=== PATIENT | female | born 1990 ===

== ENCOUNTER 2018-07-22 03:00 | Emergency (ER) | payer OTHER ==
[2018-07-22 03:19] VITALS: BMI 20.1
[2018-07-22] MEDS ORDERED: Sodium Chloride 0.9% 1,000 ML IV STA ×2 (03:51→07:14)
--- NOTE | 2018-07-22 03:55 | ED PDOC ---
HPI: Hypertension/Hypotension Chief Complaint (Provider): palpitations History Per: Patient History/Exam Limitations: no limitations Onset/Duration Of Symptoms: Days (3), Waxing/Waning Current Symptoms Are (Timing): Still Present Associated Symptoms: Dyspnea, Dizziness Additional Complaint(s): 27 y/o female presents for evaluation of intermittent palpitations x 3 days. Associated shortness of breath and sometimes notes dizziness with symptoms. Denies fever, headache, nausea/vomiting, chest pain, abdominal pain, leg pain/swelling, recent travel. Patient is 3 months , was also receiving iron infusions during . <Genet Aj - Last Filed: 07/22/18 05:53> <Teodora Castro - Last Filed: 07/22/18 07:51> Time Seen by Provider: 07/22/18 03:37 Chief Complaint (Nursing): Palpitations Past Medical History Reviewed: Historical Data, Nursing Documentation, Vital Signs Vital Signs: Last Vital Signs Temp 98.5 F 07/22/18 03:19 Pulse 100 H 07/22/18 03:19 Resp 18 07/22/18 03:19 BP 104/65 07/22/18 03:19 Pulse Ox 100 07/22/18 03:19 - Medical History PMH: Anemia - Surgical History Surgical History: No Surg Hx - Family History Family History: States: No Known Family Hx - Living Arrangements Living Arrangements: With Family - Social History Current smoker - smoking cessation education provided: No Alcohol: None Drugs: Denies <Genet Aj - Last Filed: 07/22/18 05:53> Vital Signs: Last Vital Signs Temp 98.5 F 07/22/18 03:19 Pulse 100 H 07/22/18 03:19 Resp 18 07/22/18 03:19 BP 104/65 07/22/18 03:19 Pulse Ox 100 07/22/18 06:00 <Teodora Castro - Last Filed: 07/22/18 07:51> - Home Medications Home Medications: Ambulatory Orders Medication Instructions Recorded methIMAzole [Tapazole] 10 mg PO BID 30 Days tab 07/22/18 - Allergies Allergies/Adverse Reactions: Allergies Allergy/AdvReac Type Severity Reaction Status Date / Time No Known Allergies Allergy Verified 07/22/18 03:19 Review of Systems ROS Statement: Except As Marked, All Systems Reviewed And Found Negative Cardiovascular: Positive for: Palpitations Respiratory: Positive for: Shortness of Breath <Genet Aj - Last Filed: 07/22/18 05:53> Physical Exam - Reviewed Nursing Documentation Reviewed: Yes Vital Signs Reviewed: Yes - Physical Exam Appears: Positive for: Well, Non-toxic, No Acute Distress Head Exam: Positive for: ATRAUMATIC, NORMAL INSPECTION, NORMOCEPHALIC Skin: Positive for: Normal Color Eye Exam: Positive for: Normal appearance ENT: Positive for: Normal ENT Inspection Cardiovascular/Chest: Positive for: Regular Rate, Rhythm Respiratory: Positive for: Normal Breath Sounds Gastrointestinal/Abdominal: Positive for: Normal Exam Back: Positive for: Normal Inspection Extremity: Positive for: Normal ROM Neurologic/Psych: Positive for: Alert, Oriented (x3) <Genet Aj - Last Filed: 07/22/18 05:53> - Laboratory Results Result Diagrams: 07/22/18 04:10 07/22/18 04:10 - ECG ECG: Positive for: Viewed By Me (reviewed by ED attending) ECG Rhythm: Positive for: Sinus Rhythm O2 Sat by Pulse Oximetry: 100 - Progress ED Course And Treament: -cbc -cmp -tsh -CT angio chest -school bus monitor -IV NS bolus <Genet Aj - Last Filed: 07/22/18 05:53> - Laboratory Results Result Diagrams: 07/22/18 04:10 07/22/18 04:10 <Teodora Castro - Last Filed: 07/22/18 07:51> Disposition - Disposition Disposition Time: 06:00 Patient Signed Over To: Teodora Castro Handoff Comments: pending labs, CT <Genet Aj - Last Filed: 07/22/18 05:53> <Teodora Castro - Last Filed: 07/22/18 07:51> - Clinical Impression Clinical Impression: Palpitations, Hyperthyroidism - Disposition Condition: STABLE Addendum Addendum: 07/22/18 1799 --Patient admitted to telemetry for workup of thyroid --Endocrinology consult placed 0730 Spoke with lois Hickman, who states there is no need for admission at this time, but to instead take metronidazol 10mg PID and follow up with PMD. Will contact [facility] and give update. Patient is to follow up with PMD. Return parameters discussed. 0745 Discussed taking Methimazole with patient as she has recently been breast feeding. PT states she already stopped breast feeding while on cold medicine and has stopped producing milk. Pt states she prefers to take the Methimazole and to not breast feed. Pt instructed to dump any breast milk that is produced and to not breast feed her infant unless she stops methimazole. Scribe Attestation: Documented by Haleigh Ulrich, acting as a scribe for Teodora Castro MD. Provider Scribe Attestation: All medical record entries made by the Scribe were at my direction and personally dictated by me. I have reviewed the chart and agree that the record accurately reflects my personal performance of the history, physical exam, medic al decision making, and the department course for this patient. I have also personally directed, reviewed, and agree with the discharge instructions and disposition. 07/22/18 07:49 <Teodora Castro - Last Filed: 07/22/18 07:51>
[2018-07-22 04:29] LABS: BASO % 0.3 % (0.0-2.0); EOS # 0.1 K/uL (0.0-0.7); EOS % 0.8 % (0.0-4.0); HEMOGLOBIN 13.3 g/dL (12.0-16.0); LYMPH # 1.4 K/uL (1.0-4.3); LYMPH % 20.4 % (20.0-40.0); MEAN CELL VOLUME 86.4 fl (81.0-99.0); MEAN CORPUSCULAR HGB CONC 33.6 g/dL (33.0-37.0); MEAN PLATELET VOLUME 7.2 fl (7.2-11.7); MONO % 15.5 % (0.0-10.0); NEUT # 4.2 K/uL (1.8-7.0); NRBC % 0.1 % (0.0-0.0); RBC 4.58 Mil/uL (3.80-5.20); RED CELL DISTRIBUTION WIDTH 13.9 % (11.5-14.5); WHITE BLOOD COUNT 6.7 K/uL (4.8-10.8)
[2018-07-22 04:40] LABS: ALB/GLOB RATIO 1.4 (1.0-2.1); ALBUMIN 4.1 g/dL (3.5-5.0); ALT/SGPT 40 U/L (9-52); AST/SGOT 24 U/L (14-36); BLOOD UREA NITROGEN 12 mg/dl (7-17); GFR NON-AFRICAN AMERICAN > 60
[2018-07-22] MEDS ORDERED: Iodixanol 320 MG/ML 100 ML BOTTLE IV ONE (05:49)
[2018-07-22] MEDS ORDERED: Sodium Chloride 0.9% 50 ML IV ONE (05:49)
[2018-07-22 05:53] LABS: T4 20.2 ug/dl (5.5-11.0)
[2018-07-22] MEDS ORDERED: Labetalol 5mg/ml (4ml) IVP STA (06:04)
[2018-07-22 06:06] LABS: T3 3.29 nmol/L (1.49-2.60)
[2018-07-22 07:16] VITALS: RESP 19; O2SAT 98
[2018-07-22 08:15] VITALS: BP 110/78; PULSE 91; TEMP 97.6
--- NOTE | 2018-07-22 09:59 | CT ---
Date of service: 07/22/2018 PROCEDURE: CT Chest with contrast (Pulmonary Angiogram) HISTORY: SOB, palpitations COMPARISON: None available. TECHNIQUE: Axial computed tomography images were obtained of the chest in the pulmonary arterial phase of enhancement. Coronal and sagittal reformatted images were created and reviewed. Intravenous contrast dose: 100 cc Visipaque 320 Radiation dose: Total exam DLP = 109.86 mGy-cm. This CT exam was performed using one or more of the following dose reduction techniques: Automated exposure control, adjustment of the mA and/or kV according to patient size, and/or use of iterative reconstruction technique. FINDINGS: PULMONARY ARTERIES: Unremarkable. No pulmonary embolism. AORTA: No acute findings. No thoracic aortic aneurysm. No aortic atherosclerotic calcification or mural plaque present. LUNGS: Unremarkable. No nodule, mass or pulmonary consolidation. PLEURAL SPACES: Unremarkable. No effusion or pneumothorax. HEART: Unremarkable. No cardiomegaly. No significant pericardial effusion. LYMPH NODES: No lymphadenopathy. Small hiatal hernia. BONES, CHEST WALL: Unremarkable. No fracture or destructive lesion OTHER FINDINGS: Unremarkable. IMPRESSION: Unremarkable CT pulmonary angiogram. No pulmonary embolus.
== END 2018-07-22 08:15 | disposition home or self-care (01) ==
LOC: H.ER 03:00 → H.ERHOLD 06:56 → UNDOADMIN 06:56 → H.ER 08:15
DX: R00.2 Palpitations (principal); E05.90 Thyrotoxicosis, unspecified without thyrotoxic crisis or storm; I10 Essential (primary) hypertension
CPT/HCPCS: 71275; 80053; 81025; 84436; 84443; 84480; 85025; 96360; 99285; J7030; Q9967

== ENCOUNTER 2018-07-26 00:51 | Emergency (ER) | payer OTHER ==
[2018-07-26 00:51] VITALS: BMI 20.1
[2018-07-26 01:18] VITALS: BP 110/69; PULSE 104; TEMP 98.2; O2SAT 100
[2018-07-26 04:49] LABS: BASO % 0.4 % (0.0-2.0); EOS # 0.1 K/uL (0.0-0.7); EOS % 1.2 % (0.0-4.0); HEMOGLOBIN 12.8 g/dL (12.0-16.0); LYMPH # 1.2 K/uL (1.0-4.3); LYMPH % 17.3 % (20.0-40.0); MEAN CELL VOLUME 84.3 fl (81.0-99.0); MEAN CORPUSCULAR HEMOGLOBIN 28.6 pg (27.0-31.0); MEAN PLATELET VOLUME 7.3 fl (7.2-11.7); MONO # 0.8 K/uL (0.0-0.8); MONO % 12.8 % (0.0-10.0); NEUT # 4.5 K/uL (1.8-7.0); NEUT % 68.3 % (50.0-75.0); NRBC % 0.1 % (0.0-0.0); RBC 4.47 Mil/uL (3.80-5.20); RED CELL DISTRIBUTION WIDTH 13.5 % (11.5-14.5); WHITE BLOOD COUNT 6.6 K/uL (4.8-10.8)
--- NOTE | 2018-07-26 05:03 | ED PDOC ---
HPI: SOB/CHF/COPD Time Seen by Provider: 07/26/18 01:10 Chief Complaint (Nursing): Shortness Of Breath Chief Complaint (Provider): Shortness Of Breath History Per: Patient History/Exam Limitations: no limitations Onset/Duration Of Symptoms: Days Current Symptoms Are (Timing): Still Present Additional Complaint(s): Merary Alcala is a 28 year old female with a past medical history of anemia, who presents to the emergency department complaining of shortness of neha ath and palpitations. Patient was seen here on 07/22/18 for hypothyroidism and was Rx metronidazole 10mg PID. She last took the medication at 11pm last night. Patient denies fever, chest pain, vomiting, diarrhea. PMD: Preston Hollins Past Medical History Reviewed: Historical Data, Nursing Documentation, Vital Signs Vital Signs: Last Vital Signs Temp 98.2 F 07/26/18 01:14 Pulse 104 H 07/26/18 01:14 Resp 16 07/26/18 01:14 BP 110/69 07/26/18 01:14 Pulse Ox 100 07/26/18 01:14 - Medical History PMH: Anemia - Surgical History Surgical History: No Surg Hx - Family History Family History: States: Unknown Family Hx - Social History Current smoker - smoking cessation education provided: No Alcohol: None Drugs: Denies - Home Medications Home Medications: Ambulatory Orders Medication Instructions Recorded RX: methIMAzole [Tapazole] 10 mg PO BID 30 Days tab 07/22/18 - Allergies Allergies/Adverse Reactions: Allergies Allergy/AdvReac Type Severity Reaction Status Date / Time No Known Allergies Allergy Verified 07/26/18 01:13 Wells Criteria for PE - Wells Criteria for Pulmonary Embolism Clinical Signs and Symptoms of DVT: No P.E is #1 Diagnosis, or Equally Likely: No Heart Rate >100: Yes (then resolved) Immobilization at least 3 days;Surgery previous 4 weeks: No Previous, objectively diagnosed PE or DVT: No Hemoptysis: No Malignancy w/treatment within 6 months, or palliative: No Total Score: 1.5 Review of Systems ROS Statement: Except As Marked, All Systems Reviewed And Found Negative Constitutional: Positive for: Fever, Chills Cardiovascular: Negative for: Chest Pain Respiratory: Positive for: Shortness of Breath Gastrointestinal: Negative for: Vomiting, Diarrhea Physical Exam - Reviewed Nursing Documentation Reviewed: Yes Vital Signs Reviewed: Yes - Physical Exam Appears: Positive for: Non-toxic, No Acute Distress Head Exam: Positive for: ATRAUMATIC, NORMOCEPHALIC Skin: Positive for: Normal Color, Warm, Dry Eye Exam: Positive for: Normal appearance ENT: Positive for: Normal ENT Inspection Neck: Positive for: Normal, Painless ROM, Supple Cardiovascular/Chest: Positive for: Regular Rate, Rhythm. Negative for: Murmur Respiratory: Positive for: Normal Breath Sounds. Negative for: Respiratory Distress Gastrointestinal/Abdominal: Positive for: Normal Exam, Soft. Negative for: Tenderness Extremity: Positive for: Normal ROM. Negative for: Pedal Edema, Deformity Neurologic/Psych: Positive for: Alert, Oriented - Laboratory Results Result Diagrams: 07/26/18 04:46 07/26/18 04:46 - ECG O2 Sat by Pulse Oximetry: 100 (RA) Pulse Ox Interpretation: Normal Medical Decision Making Medical Decision Making: Time: 445 Plan: shortness of breath. pt with hyperthyroidsm --CMP --T4 --Thyroid stimulating hormone --CBC with differential 600 Labs (TSH, T4) have improved as compared to 07/22/18. Thyroxin level is lower. labs and EKG wnl, vitals are fine, patient is feeling better. pulse 80s at this time. Patient has an appointment tomorrow with her PMD. instructed her to follow up with soil analyst as well. Scribe Attestation: Documented by Glenn Damon, acting as a scribe for De Putnam MD Provider Scribe Attestation: All medical record entries made by the Scribe were at my direction and personally dictated by me. I have reviewed the chart and agree that the record accurately reflects my personal performance of the history, physical exam, medical decision making, and the department course for this patient. I have also personally directed, reviewed, and agree with the discharge instructions and disposition. Disposition - Clinical Impression Clinical Impression: Hyperthyroidism - Patient ED Disposition Is Patient to be Admitted: No Counseled Patient/Family Regarding: Studies Performed, Diagnosis, Need For Followup - Disposition Referrals: [facility] [Outside] Yanet Martinez MD [Medical Doctor] - Disposition: Routine/Home Disposition Time: 06:00 Condition: IMPROVED Additional Instructions: follow up with doctor on Tuesday also with soil analyst return to the ED with any worsening or concerning symptoms Instructions: Hyperthyroidism (Overactive Thyroid) (DC) Forms: [employer] [facility] (Italian)
[2018-07-26 05:25] LABS: T4 14.7 ug/dl (5.5-11.0)
[2018-07-26 05:29] LABS: ALB/GLOB RATIO 1.3 (1.0-2.1); ALBUMIN 3.7 g/dL (3.5-5.0); ALT/SGPT 37 U/L (9-52); AST/SGOT 22 U/L (14-36); BLOOD UREA NITROGEN 8 mg/dl (7-17); CALCIUM 9.3 mg/dL (8.4-10.2); GFR NON-AFRICAN AMERICAN > 60
[2018-07-26 10:08] VITALS: RESP 18
== END 2018-07-26 06:17 | disposition home or self-care (01) ==
LOC: H.ER 00:51
DX: E05.90 Thyrotoxicosis, unspecified without thyrotoxic crisis or storm (principal); D64.9 Anemia, unspecified